=== PATIENT | female | born 1995 | race Two or more races ===

== ENCOUNTER 2019-02-12 22:06 | Emergency (ER) | payer OTHER ==
[~2019-02-12] VITALS: Ht 167.6 cm; Wt 62.1 kg
[~2019-02-12 22:06] MED LIST: PRENATAL 19 TA1 EACH PO
[2019-02-13] MEDS ORDERED: TUSNEL LIQUID178 ML PO (02:13)
[2019-02-13] MEDS ORDERED: OSEL75CA PO (02:13)
[2019-02-13] MEDS ORDERED: ZITHROMAX500 MG PO (02:13)
== END 2019-02-13 03:15 | disposition home or self-care (01) ==
LOC: ER 22:06
DX: J06.9 Acute upper respiratory infection, unspecified (principal)

== ENCOUNTER 2019-04-06 06:46 | Inpatient (IN) | payer OTHER ==
[~2019-04-06] VITALS: Ht 167.6 cm; Wt 68.0 kg
[~2019-04-06 06:46] MED LIST changes: +OSEL75CA PO; +TUSNEL LIQUID178 ML PO; +ZITHROMAX500 MG PO
[2019-04-06] MEDS ORDERED: PRENATAL TABLE1 EACH PO (08:05)
== END 2019-04-08 14:12 | disposition home or self-care (01) | DRG 807 ==
LOC: OB/GYN 06:46 → LDR 06:46 → OB/GYN 19:06
PROVIDERS: ADMIT Obstetrics & Gynecology
PROC: 10E0XZZ Delivery of Products of Conception, External Approach (ICD-10-PCS; principal; 2019-04-06)
PROC: 10907ZC Drainage of Amniotic Fluid, Therapeutic from Products of Conception, Via Natural or Artificial Opening (ICD-10-PCS; 2019-04-06)
PROC: 3E033VJ Introduction of Other Hormone into Peripheral Vein, Percutaneous Approach (ICD-10-PCS; 2019-04-06)
PROC: 4A1HXCZ Monitoring of Products of Conception, Cardiac Rate, External Approach (ICD-10-PCS; 2019-04-06)
DX: O80 Encounter for full-term uncomplicated delivery (principal); Z37.0 Single live birth; Z3A.38 38 weeks gestation of pregnancy